=== PATIENT | female | born 1975 | race Caucasian/White ===

== ENCOUNTER 2016-12-27 20:41 | Emergency (ER) | payer OTHER ==
[~2016-12-27] VITALS: Ht 167.6 cm; Wt 63.0 kg
[2016-12-27 20:49] VITALS: BP 128/86; PULSE 87; RESP 17; TEMP 97.7; O2SAT 98
[2016-12-27] MEDS ORDERED: LEVO100T5 PO (20:50)
[2016-12-27] MEDS ORDERED: SODIUM CHLORIDE 0.9% FLUSH 10 ML FLUSH IVF PRN (21:15)
--- NOTE | 2016-12-27 21:26 | PD ---
HPI Chief Complaint: Seizure Time Seen by Provider: 21:23 Travel History International Travel<30 days: No Contact w/Intl Traveler<30days: No Traveled to known affect area: No History of Present Illness HPI Patient comes in for evaluation after [place] occurred [place] prior to arrival. Patient denies any history of seizure. Patient states she thought [place] however was reported by witnesses that she had seizure-like activity for unknown amount of time. EMS reports patient appears somewhat confused on arrival but was not postictal. Patient reports only medical history is hypothyroidism and hyperprolactinemia and does not take her medications regularly and last took them approximately a week ago. Patient states she's forgets to take them. Patient admits to occasional alcohol use but denies daily use of alcohol. Patient denies any pain anywhere currently states she just feels tired. Patient is visiting from [place]. She denies any chest pain, shortness of breath, nausea, vomiting, abdominal pain, headache, loss or change in bowel or bladder, numbness or tingling anywhere, or fevers. Denies any drug use. PFSH Past Medical History Diminished Hearing: No Thyroid Disease: Yes (HYPO) Tetanus Vaccination: Unknown Influenza Vaccination: No ?: Not LMP: 12/22/16 : 1 Para: 0 Miscarriage: 1 Past Surgical History Surgical History: No Previous Surgery Social History Alcohol Use: Yes (OCCASIONALLY) Tobacco Use: No Substance Use: No Allergies-Medications (Allergen,Severity, Reaction): Coded Allergies: No Known Allergies (Unverified , 12/27/16) Reported Meds & Prescriptions Reported Meds & Active Scripts Active Reported Levothyroxine (Levothyroxine Sodium) 100 Mcg Tab 100 Mcg PO DAILY Review of Systems Except as stated in HPI: all other systems reviewed are Neg Physical Exam Narrative GENERAL: Well-developed, well nourished, in no acute distress, and non-ill appearing. Not postictal. SKIN: Focused skin assessment warm and dry. HEAD: Atraumatic. Normocephalic. EYES: Pupils equal and round. EOMI. No scleral icterus. No injection or drainage. ENT: No nasal bleeding or discharge. Mucous membranes pink and moist. NECK: Trachea midline. Supple. No nuclear rigidity. CARDIOVASCULAR: Regular rate and rhythm. No murmur appreciated. RESPIRATORY: No accessory muscle use. No respiratory distress. Clear to auscultation. Breath sounds equal bilaterally. GASTROINTESTINAL: Abdomen soft, non-tender, nondistended. Hepatic and splenic margins not palpable. No pulsatile mass. MUSCULOSKELETAL: No obvious deformities. No clubbing. No cyanosis. No edema. Full range of motion. Shoulder:FROM equal BL with passive flexion, extension, Abduction, Adduction, internal/external rotation, and pronation/supination. Sensation equal BL deltoid muscles. Pulses equal BL distal to injury. Capillary refill less than 2 seconds distal to injury and equal BL. FROM distal to injury and equal BL. Strength distal to injury equal BL. NV intact distal to injury equal BL. Flexion and extension of thumb equal BL. Equal strength and movement with abduction/adductions of BL fingers. Roller Embosser strength equal BL. NEUROLOGICAL: Awake and alert. No obvious cranial nerve deficits. Motor grossly within normal limits. Normal speech. For range of motion with finger to nose testing. No pronator drift. PSYCHIATRIC: Appropriate mood and affect; insight and judgment normal. Data Data Last Documented VS Vital Signs Date Time Temp Pulse Resp B/P Pulse Ox O2 Delivery O2 Flow Rate FiO2 12/27/16 23:29 84 16 134/82 98 12/27/16 20:54 Room Air 12/27/16 20:49 97.7 Orders Complete Blood Count With Diff (12/27/16 21:12) Basic Metabolic Panel (Bmp) (12/27/16 21:12) Electrocardiogram (12/27/16 ) Ct Brain W/O Iv Contrast(Rout) (12/27/16 ) Blood Glucose (12/27/16 21:12) Ecg Monitoring (12/27/16 21:12) Iv Access Insert/Monitor (12/27/16 21:12) Oximetry (12/27/16 21:12) Sodium Chloride 0.9% Flush (Ns Flush) (12/27/16 21:15) Thyroid Stimulating Hormone (12/27/16 21:12) Lactic Acid (12/27/16 21:12) Labs Laboratory Tests Test 12/27/16 21:40 White Blood Count 7.4 TH/MM3 Red Blood Count 3.74 MIL/MM3 Hemoglobin 11.7 GM/DL Hematocrit 34.8 % Mean Corpuscular Volume 93.0 FL Mean Corpuscular Hemoglobin 31.2 PG Mean Corpuscular Hemoglobin 33.5 % Concent Red Cell Distribution Width 14.0 % Platelet Count 225 TH/MM3 Mean Platelet Volume 8.2 FL Neutrophils (%) (Auto) 57.3 % Lymphocytes (%) (Auto) 31.9 % Monocytes (%) (Auto) 7.5 % Eosinophils (%) (Auto) 2.5 % Basophils (%) (Auto) 0.8 % Neutrophils # (Auto) 4.2 TH/MM3 Lymphocytes # (Auto) 2.4 TH/MM3 Monocytes # (Auto) 0.6 TH/MM3 Eosinophils # (Auto) 0.2 TH/MM3 Basophils # (Auto) 0.1 TH/MM3 CBC Comment DIFF FINAL Differential Comment Sodium Level 140 MEQ/L Potassium Level 3.7 MEQ/L Chloride Level 104 MEQ/L Carbon Dioxide Level 26.8 MEQ/L Anion Gap 9 MEQ/L Blood Urea Nitrogen 14 MG/DL Creatinine 0.88 MG/DL Estimat Glomerular Filtration 70 ML/MIN Rate Random Glucose 64 MG/DL Lactic Acid Level 1.9 mmol/L Calcium Level 8.4 MG/DL Thyroid Stimulating Hormone 23.400 uIU/ML [address] [place] [address] Medical Decision Making Medical Screen Exam Complete: Yes Emergency Medical Condition: Yes Interpretation(s) CT the head read by the radiologist shows: Normal examination. Differential Diagnosis Seizure, electrolyte abnormality, mass, intracranial hemorrhage, other Narrative Course The patient presented with new onset seizure. The patient looks great and has returned to baseline. There is no evidence clinically to suggest meningitis or metabolic etiology. Laboratory exam and CT were normal with the exception of elevated TSH which is likely secondary from patient's noncompliance with her medication. The patient appears well hydrated and nontoxic. Clinical suspicion was discussed with patient. Patient was offered admission but is refusing at this time. Plan of care, with no initiation of medications at this time and follow up with neurology is mandatory for outpatient studies such as possible MRI or EEG. The patient was reassured and discharged home in agreement with plan of care. They were instructed to return as needed or if recurred prior to follow up with neurology. The patient was also informed that they may not drive or operated heavy machinery due to the fact that they may have a seizure and cause injury or to themselves or others. They may not drive or operate heavy machinery until cleared by a neurologist. Patient in no obvious distress upon re-evaluation. All pertinent laboratory/ Radiology result(s) discussed with patient. Discussed patient with Dr. Brown prior to discharge, who is in agreement with plan of care and disposition. Any questions/concerns in reference to patient diagnosis/ condition discussed and clarified prior to patient's discharge. Reinforced sheer importance of close follow up with patient's primary physician or primary care clinic. Instructed patient to return to ED immediately, if symptoms return/ worsen. Pt showed understanding of above instructions. Further instructions and recommendations were detailed in discharge paperwork. Pt ambulated without difficulty out of ED at discharge. Diagnosis Primary Impression: Seizure-like activity Patient Instructions: General Instructions, New-Onset Seizure in Adults (ED) Additional Instructions: Follow-up with neurologist in 2-3 days for reevaluation. Do not drive or operate heavy machinery until cleared by a neurologist. Return to the emergency department if symptoms get worse. Disposition: 01 DISCHARGE HOME Condition: Stable Arnulfo Whitaker December 27, 2016 21:26
[2016-12-27 22:10] LABS: AUTOMATED NEUTROPHIL # 4.2 TH/MM3 (1.8-7.7); BASOPHIL # 0.1 TH/MM3 (0-0.2); BASOPHIL % 0.8 % (0.0-2.0); EOSINOPHIL # 0.2 TH/MM3 (0-0.4); EOSINOPHIL % 2.5 % (0.0-4.0); HEMATOCRIT 34.8 % (35.0-46.0); LYMPH % 31.9 % (9.0-44.0); LYMPHOCYTE # 2.4 TH/MM3 (1.0-4.8); MEAN CORPUSCULAR HEMOGLOBIN 31.2 PG (27.0-34.0); MEAN CORPUSCULAR HGB CONC 33.5 % (32.0-36.0); MONO % 7.5 % (0.0-8.0); NEUT % 57.3 % (16.0-70.0); PLATELET COUNT 225 TH/MM3 (150-450); RED BLOOD COUNT 3.74 MIL/MM3 (4.00-5.30); WHITE BLOOD COUNT 7.4 TH/MM3 (4.0-11.0)
[2016-12-27 22:17] LABS: HEMO FLAGS DIFF FINAL
[2016-12-27 22:49] LABS: BICARBONATE 26.8 MEQ/L (21.0-32.0); POTASSIUM 3.7 MEQ/L (3.5-5.1)
--- NOTE | 2016-12-27 23:06 | RADRPT ---
EXAM DATE/TIME: 12/27/2016 22:33 [facility] COMPARISON: No previous studies available for comparison. INDICATIONS : Possible seizure. RADIATION DOSE: 41.84 CTDIvol (mGy) MEDICAL HISTORY : Hypothyroidism. SURGICAL HISTORY : None. ENCOUNTER: Initial ACUITY: 1 day PAIN SCALE: 0/10 LOCATION: cranial TECHNIQUE: Multiple contiguous axial images were obtained of the head. Using automated exposure control and adj ustment of the mA and/or kV according to patient size, radiation dose was kept as low as reasonably a chievable to obtain optimal diagnostic quality images. FINDINGS: CEREBRUM: The ventricles are normal for age. No evidence of midline shift, mass lesion, hemorrhage or acute in farction. No extra-axial fluid collections are seen. POSTERIOR FOSSA: The cerebellum and brainstem are intact. The 4th ventricle is midline. The cerebellopontine angle i s unremarkable. EXTRACRANIAL: The visualized portion of the orbits is intact. SKULL: The calvaria is intact. No evidence of skull fracture. CONCLUSION: Normal examination. Marco Larson MD on December 27, 2016 at 23:04 Board Certified Radiologist. This report was verified electronically.
[2016-12-27 23:29] VITALS: BP 134/82
--- NOTE | 2016-12-28 16:43 | EKG ---
Date Performed: 12/27/2016 Time Performed: 22:03:57 PTAGE: 41 years EKG: Sinus rhythm NORMAL ECG NO PREVIOUS TRACING DOCTOR: Cathryn Luis Interpretating Date/Time 12/28/2016 16:41:03
== END 2016-12-27 23:33 | disposition home or self-care (01) ==
LOC: NEPE 20:41
DX: R56.9 Unspecified convulsions (principal); E03.9 Hypothyroidism, unspecified
CPT/HCPCS: 70450; 80048; 83605; 84443; 85025; 93005